=== PATIENT | male | born 1960 | race African-American/Black ===

== ENCOUNTER 2024-05-09 16:34 | Emergency (ER) | payer MEDICAID ==
[~2024-05-09] VITALS: Ht 182.9 cm; Wt 92.0 kg
[~2024-05-09 16:34] MED LIST: FURO20TA4
[2024-05-09 16:35] VITALS: O2SAT 100
[2024-05-09 18:05] VITALS: BP 162/79; PULSE 98; RESP 22; O2SAT 96
== END 2024-05-09 18:34 | disposition left against medical advice (07) ==
LOC: ER 16:34
DX: R06.02 Shortness of breath (principal); F17.200 Nicotine dependence, unspecified, uncomplicated; E11.9 Type 2 diabetes mellitus without complications; Z79.899 Other long term (current) drug therapy; Z98.890 Other specified postprocedural states
CPT/HCPCS: 71045; 93005; 94640; 99283

== ENCOUNTER 2024-07-03 00:53 | Emergency (ER) | payer MEDICAID ==
[~2024-07-03] VITALS: Ht 172.7 cm; Wt 77.0 kg
[~2024-07-03 00:53] MED LIST changes: -ABILIFY IM; -ACETYLCYSTEINE 200MG/ML 20% VIAL 30ML PO ONE; -ACETYLCYSTEINE 200MG/ML 20% VIAL 4ML INH NR; -ALBU05 NEB; -AZIT250T12 MT; -GUAI600T26 MT; -IPRA3AMP9 HHN; -P20 MT; -PULM50 NEB
[2024-07-03 01:00] VITALS: TEMP 37.1; O2SAT 96
[2024-07-03] MEDS: ALBUTEROL (0.083%) 2.5MG/3ML NEB HHN ONE (01:00)
[2024-07-03] MEDS ORDERED: ACETYLCYSTEINE 200MG/ML 20% VIAL 30ML PO ONE (01:00)
[2024-07-03 02:32] LABS: BASOPHILS % 0.4 % (0.0-2.0); EOSINOPHILS % 1.8 % (0.0-5.0); HEMATOCRIT. 36.4 % (42.0-52.0); HEMOGLOBIN. 11.9 g/dL (14.0-18.0); LYMPHOCYTES % 16.9 % (20.0-50.0); MEAN CORPUSCULAR HEMOGLOBIN 28.2 pg (28.0-32.0); MEAN CORPUSCULAR HGB CONC 32.8 g/dL (31.0-37.0); MEAN CORPUSCULAR VOLUME 85.8 fL (80.0-94.0); MEAN PLATELET VOLUME 7.6 fl (7.4-10.4); MONOCYTES % 14.5 % (2.0-8.0); NEUTROPHILS % 66.4 % (40.0-76.0); PLATELET 295 x1000/uL (130-400); RED BLOOD CELL COUNT 4.24 mill/uL (4.7-6.1); WHITE BLOOD COUNT 5.5 x1000/uL (4.5-11.0)
[2024-07-03 02:40] LABS: CHLORIDE 105 mEq/L (98-107); SODIUM 141 mEq/L (136-145)
[2024-07-03 02:41] LABS: CARBON DIOXIDE 27 mEq/L (21-32)
[2024-07-03 02:46] LABS: CREATININE 0.9 mg/dL (0.6-1.3); GLUCOSE 102 mg/dL (70-105); TROPONIN I HIGH SENSITIVITY 6 ng/L (3.0-53); UREA NITROGEN BLOOD 12 mg/dL (9-23)
[2024-07-03 02:47] LABS: ETHANOL BLOOD < 10 mg/dL (<10)
[2024-07-03 02:56] LABS: INR 0.9; PARTIAL THROMBOPLASTIN TIME 26.2 sec (23.4-31.0); PROTHROMBIN TIME 9.8 sec (9.6-11.0)
[2024-07-03] MEDS ORDERED: ALBU05 NEB (04:52)
[2024-07-03] MEDS ORDERED: GUAI600T26 MT (04:55)
[2024-07-03 06:13] VITALS: BP 142/71; PULSE 97; RESP 22; O2SAT 96
== END 2024-07-03 06:13 | disposition home or self-care (01) ==
LOC: ER 01:08 → EDBEDREQ 01:21 → ER 06:13
DX: J41.1 Mucopurulent chronic bronchitis (principal); E11.9 Type 2 diabetes mellitus without complications; I10 Essential (primary) hypertension; Z93.0 Tracheostomy status; Z79.899 Other long term (current) drug therapy
CPT/HCPCS: 80048; 80320; 83880; 83605; 85025; 85610; 85730; 87040; 84484; 36415; 84145; 71045; 93005; 99285; Z7610 ×3; G0480

== ENCOUNTER → 2024-07-03 | Emergency (ER) | payer MEDICAID ==
[~2024-07-03] VITALS: Ht 172.7 cm; Wt 77.0 kg
[~2024-07-03] MED LIST changes: +ABILIFY IM; +ACETYLCYSTEINE 200MG/ML 20% VIAL 30ML PO ONE; +ACETYLCYSTEINE 200MG/ML 20% VIAL 4ML INH NR; +ALBU05 NEB; +AZIT250T12 MT; +DOXY-461 MT; +GUAI600T26 MT; +IPRA3AMP9 HHN; +P20 MT; +PULM50 NEB
[2024-07-03 00:40] VITALS: BP 127/85; TEMP 36.9
[2024-07-03] MEDS: ACETYLCYSTEINE 200MG/ML 20% VIAL 4ML INH NR (01:30)
[2024-07-03] MEDS: ALBUTEROL (0.083%) 2.5MG/3ML NEB HHN NR (01:32)
[2024-07-03 01:34] VITALS: O2SAT 98
[2024-07-03 01:36] VITALS: PULSE 104; RESP 21; O2SAT 98
== END | disposition left against medical advice (07) ==
LOC: ER 00:17 → MERGE 00:17
DX: R06.02 Shortness of breath (principal); Z53.21 Procedure and treatment not carried out due to patient leaving prior to being seen by health care provider
CPT/HCPCS: 31720; J7608; Z7610 ×3; 94070; 94640; 94664; 98960; 99283

== ENCOUNTER 2024-07-07 01:40 | Emergency (ER) | payer MEDICAID ==
[~2024-07-07] VITALS: Ht 172.7 cm; Wt 70.0 kg
[~2024-07-07 01:40] MED LIST changes: +ALBU05 NEB; +GUAI600T26 MT
[2024-07-07 01:43] VITALS: O2SAT 97
[2024-07-07 02:37] LABS: BASOPHILS % 0.2 % (0.0-2.0); EOSINOPHILS % 0.6 % (0.0-5.0); HEMATOCRIT. 35.3 % (42.0-52.0); HEMOGLOBIN. 11.5 g/dL (14.0-18.0); LYMPHOCYTES % 13.1 % (20.0-50.0); MEAN CORPUSCULAR HEMOGLOBIN 28.1 pg (28.0-32.0); MEAN CORPUSCULAR HGB CONC 32.7 g/dL (31.0-37.0); MEAN CORPUSCULAR VOLUME 85.9 fL (80.0-94.0); MEAN PLATELET VOLUME 7.1 fl (7.4-10.4); MONOCYTES % 13.8 % (2.0-8.0); NEUTROPHILS % 72.3 % (40.0-76.0); PLATELET 267 x1000/uL (130-400); RED CELL DISTRIBUTION WIDTH 15.2 % (11.6-14.6); WHITE BLOOD COUNT 7.5 x1000/uL (4.5-11.0)
[2024-07-07 02:44] LABS: PARTIAL THROMBOPLASTIN TIME 23.5 sec (23.4-31.0); PROTHROMBIN TIME 10.3 sec (9.6-11.0)
[2024-07-07 03:05] LABS: CHLORIDE 100 mEq/L (98-107); POTASSIUM 3.9 mEq/L (3.5-5.1); SODIUM 136 mEq/L (136-145)
[2024-07-07 03:06] LABS: CALCIUM 9.1 mg/dL (8.7-10.4); CARBON DIOXIDE 27 mEq/L (21-32)
[2024-07-07 03:11] LABS: CREATININE 1.2 mg/dL (0.6-1.3); GLUCOSE 110 mg/dL (70-105); UREA NITROGEN BLOOD 16 mg/dL (9-23)
[2024-07-07 03:12] LABS: ETHANOL BLOOD 50 mg/dL (<10); TROPONIN I HIGH SENSITIVITY 6 ng/L (3.0-53)
[2024-07-07 04:29] LABS: HIV 1/2 AB P24AG Negative (Negative)
[2024-07-07 04:33] LABS: *AMPHETAMINES SCREEN URINE NEGATIVE (NEGATIVE); *BARBITURATES SCREEN URINE NEGATIVE (NEGATIVE); *BENZODIAZEPINES SCREEN URINE NEGATIVE (NEGATIVE); *COCAINE SCREEN URINE NEGATIVE (NEGATIVE); CANNABINOID URINE SCREEN NEGATIVE (NEGATIVE); ECSTASY MDMA SCREEN URINE NEGATIVE (NEGATIVE); METHADONE URINE SCREEN NEGATIVE (NEGATIVE); OPIATES URINE SCREEN NEGATIVE (NEGATIVE); PHENCYCLIDINE URINE SCREEN PRESUMTIVE POSITIVE (NEGATIVE)
[2024-07-07 06:00] VITALS: BP 123/83; PULSE 101; RESP 14; TEMP 37.7; O2SAT 97
[2024-07-07] MEDS ORDERED: ALBUTEROL (0.083%) 2.5MG/3ML NEB HHN NR (06:30)
[2024-07-07 08:44] LABS: HEPATITIS B SURFACE ANTIGEN NEGATIVE
[2024-07-07 08:45] LABS: HEPATITIS C VIR.AB 0.16 INDEXVAL (0.00-0.80)
== END 2024-07-07 06:45 | disposition left against medical advice (07) ==
LOC: ER 01:40
DX: J40 Bronchitis, not specified as acute or chronic (principal); J44.9 Chronic obstructive pulmonary disease, unspecified; R06.02 Shortness of breath; E11.9 Type 2 diabetes mellitus without complications; F10.129 Alcohol abuse with intoxication, unspecified; I10 Essential (primary) hypertension; Z93.0 Tracheostomy status; Z79.899 Other long term (current) drug therapy; Y90.9 Presence of alcohol in blood, level not specified
CPT/HCPCS: 36415; 71045; 80048; 80305; 80320; 83605; 83880; 84484; 85025; 93005; 99285; G0480

== ENCOUNTER 2024-07-07 07:52 | Emergency (ER) | payer MEDICARE ==
[~2024-07-07] VITALS: Ht 167.6 cm; Wt 60.0 kg
[~2024-07-07 07:52] MED LIST changes: +ABILIFY IM
[2024-07-07 08:00] VITALS: BP 123/88; PULSE 111; RESP 18; TEMP 36.9; O2SAT 98
== END 2024-07-07 09:18 | disposition home or self-care (01) ==
LOC: ER 07:52 → MERGE 07:52 → ER 09:18
DX: E11.9 Type 2 diabetes mellitus without complications (principal); I10 Essential (primary) hypertension; J44.9 Chronic obstructive pulmonary disease, unspecified; Z43.0 Encounter for attention to tracheostomy; Z83.3 Family history of diabetes mellitus; Z88.0 Allergy status to penicillin
CPT/HCPCS: 99281

== ENCOUNTER 2024-08-19 20:55 | Inpatient (IN) | payer MEDICAID ==
[~2024-08-19] VITALS: Ht 175.3 cm; Wt 60.4 kg
[~2024-08-19 20:55] MED LIST changes: +AZIT250T12 MT; +IPRA3AMP9 HHN; +P20 MT; +PULM50 NEB
[2024-08-19 22:37] LABS: BASOPHILS % 0.3 % (0.0-2.0); HEMATOCRIT. 38.3 % (42.0-52.0); HEMOGLOBIN. 12.6 g/dL (14.0-18.0); LYMPHOCYTES % 8.3 % (20.0-50.0); MEAN CORPUSCULAR HEMOGLOBIN 28.6 pg (28.0-32.0); MEAN CORPUSCULAR HGB CONC 32.9 g/dL (31.0-37.0); MEAN PLATELET VOLUME 7.4 fl (7.4-10.4); NEUTROPHILS % 87.4 % (40.0-76.0); PLATELET 241 x1000/uL (130-400); RED CELL DISTRIBUTION WIDTH 17.8 % (11.6-14.6); WHITE BLOOD COUNT 6.2 x1000/uL (4.5-11.0)
[2024-08-19 22:48] LABS: PROTHROMBIN TIME 10.3 sec (9.6-11.0)
[2024-08-19 22:57] LABS: CARBON DIOXIDE 28 mEq/L (21-32); CHLORIDE 106 mEq/L (98-107); POTASSIUM 4.3 mEq/L (3.5-5.1); SODIUM 143 mEq/L (136-145)
[2024-08-19 22:58] LABS: CALCIUM 9.7 mg/dL (8.7-10.4)
[2024-08-19 23:03] LABS: ETHANOL BLOOD < 10 mg/dL (<10); GLUCOSE 106 mg/dL (70-105); UREA NITROGEN BLOOD 14 mg/dL (9-23)
[2024-08-20] MEDS ORDERED: IPRATROPIUM/ALBUTEROL 0.5-3(2.5)MG/3ML NEB HHN PRN (06:30)
[2024-08-20] MEDS ORDERED: DEXTROSE 50% WATER 50ML SYRINGE IV PRN (06:30)
[2024-08-20 08:00] VITALS: BP 145/92; PULSE 82; RESP 19; TEMP 36.5; O2SAT 99
[2024-08-20] MEDS: BLOOD SUGAR DIAGNOSTIC STRIP TEST SCH (11:45)
[2024-08-20 12:00] VITALS: BP 141/86; PULSE 67; RESP 19; TEMP 36.4; O2SAT 97
[2024-08-20] MEDS: INSULIN LISPRO 100 UNITS/ML SUBCUT SCH (12:15)
[2024-08-20 16:00] VITALS: BP 120/84; PULSE 85; RESP 19; TEMP 36.6; O2SAT 98
[2024-08-20 20:00] VITALS: BP 117/81; PULSE 76; RESP 17; TEMP 37.2; O2SAT 95
[2024-08-21] VITALS: BP 126/82; PULSE 81; RESP 16; TEMP 36.8; O2SAT 97
[2024-08-21 04:00] VITALS: BP 145/93; PULSE 70; RESP 16; TEMP 37.1; O2SAT 96
[2024-08-21 12:00] VITALS: BP 133/89; PULSE 83; RESP 18; TEMP 36.9; O2SAT 97
[2024-08-21 14:24] LABS: BG BASE EXCESS 3.3 mmol/L (-2.0-3.0); BG CARBOXYHEMOGLOBIN 1.3 % (0.5-1.5); BG DEOXYHEMOGLOBIN 4.3 % (0.0-5.0); BG FRACTION INSPIRED OXYGEN 21; BG HCO3 ACT 28.4 mmol/L (21.0-28.0); BG OXYGEN SATURATION 95.6 % (94.0-98.0); BG OXYHEMOGLOBIN 94.4 % (94.0-98.0); BG PCO2 44.8 mmHg (35.0-48.0); BG PO2 75.8 mmHg (83.0-108.0); BG SAMPLE SITE RIGHT BRACHIAL; BG VENT MODE ROOM AIR
[2024-08-21 16:00] VITALS: BP 129/77; PULSE 83; RESP 18; TEMP 36.3; O2SAT 97
[2024-08-21 20:00] VITALS: BP 108/79; PULSE 100; RESP 19; TEMP 36.3; O2SAT 97
[2024-08-22] VITALS: BP 108/78; PULSE 78; RESP 17; TEMP 36.7; O2SAT 99
[2024-08-22 04:00] VITALS: BP 112/92; PULSE 113; RESP 21; TEMP 37.1; O2SAT 97
[2024-08-22 08:00] VITALS: BP 114/87; PULSE 82; RESP 18; TEMP 36.3; O2SAT 98
[2024-08-22 11:38] VITALS: BP 115/83; PULSE 91; TEMP 98.2; O2SAT 97
[2024-08-22 12:00] VITALS: BP 115/79; PULSE 91; RESP 18; TEMP 36.8; O2SAT 97
== END 2024-08-22 12:30 | disposition home or self-care (01) | DRG 143 ==
LOC: ER 20:55 → 5WST 22:08 → EDUNIT# 22:08 → EDBEDREQTM 22:16 → EDBEDREQ 22:16 → ENRESERV 23:07
PROVIDERS: ADMIT Internal Medicine; ATTEND Internal Medicine
DX: J95.03 Malfunction of tracheostomy stoma (principal); G93.40 Encephalopathy, unspecified; J96.10 Chronic respiratory failure, unspecified whether with hypoxia or hypercapnia; E11.9 Type 2 diabetes mellitus without complications; J44.9 Chronic obstructive pulmonary disease, unspecified; F17.210 Nicotine dependence, cigarettes, uncomplicated; F10.90 Alcohol use, unspecified, uncomplicated; Y90.9 Presence of alcohol in blood, level not specified; Y83.8 Other surgical procedures as the cause of abnormal reaction of the patient, or of later complication, without mention of misadventure at the time of the procedure; Y92.238 Other place in hospital as the place of occurrence of the external cause; Z79.899 Other long term (current) drug therapy
CPT/HCPCS: 36415; 36600; 71045; 80048; 80320; 82375; 82805; 82962; 83036; 85025; 86850; 86900; 99291; J1815; G0480